=== PATIENT | male | born 1960 | race Asian ===

== ENCOUNTER 2020-07-21 06:34 | Observation (INO) ==
--- NOTE | 2020-07-14 13:23 | PAT Medication Instructions ---
Medication Instructions Date of Service July 14, 2020 Home Medications Medication Instructions Recorded hydrocortisone 2.5 % topical cream 1 applic TOPICAL BID #30 g 11/27/19 ketoconazole 2 % topical cream 1 applic TOPICAL BID #60 g 11/27/19 Wheeled Walker #1 ea 03/23/20 hydrocortisone 2.5 % topical cream 1 applic TOPICAL BID ketoconazole 2 % topical cream 1 applic TOPICAL BID ascorbic acid (vitamin C) [Vitamin C] 1 g PO QAM atorvastatin 20 mg PO HS multivitamin 1 tab PO QAM STOP taking 24 hours before surgery hydrocortisone 2.5 % topical cream 1 applic TOPICAL BID ketoconazole 2 % topical cream 1 applic TOPICAL BID DO NOT take the morning of surgery ascorbic acid (vitamin C) [Vitamin C] 1 g PO QAM multivitamin 1 tab PO QAM Take evening before surgery atorvastatin 20 mg PO HS Other Notes If you have any questions please call us at [phone] or [phone] or [phone] or [phone]
--- NOTE | 2020-07-15 08:21 | Anesthesiology Consultation ---
Date of Service July 15, 2020 Assessment & Plan (1) Encounter for pre-operative examination: Chart Review Chart Review: Acceptable Risk for Surgery (pending preop Covid testing results ) and Patient seen in Pre Admission Testing Per PAT appt on 07/15/20, patient returned from [place]- returned 06/21/20 (did fly). No known Covid positive contacts or Covid related symptoms. No known Covid infection in the past 90 days. Preop Covid testing scheduled 07/17/20= will await results. Educated on importance of self quarantining, social distancing and wearing mask in public both for the patient and household contacts. Pt fully vaccinated Teaching & Discussion Pre-Anesthesia Teaching/Discussion Notes: Instructed NPO after midnight before surgery,except medications with 15 cc of water. Medication instructions provided according to the [facility] guidelines. History Surgery Operation Date: 07/21/20 12:30 Proposed Procedures p Right Total Knee Arthroplasty - Jaime Bach MD Height/Weight Height: 6 ft 2 in Weight: 120.2 kg Allergies Allergy/AdvReac Type Severity Reaction Status Date / Time No Known Drug Allergies Allergy Verified 07/10/20 13:15 Medications Home Medications Medication Instructions Recorded Confirmed Last Taken hydrocortisone 2.5 % topical cream 1 applic TOPICAL BID #30 g 11/27/19 07/14/20 Unknown ketoconazole 2 % topical cream 1 applic TOPICAL BID #60 g 11/27/19 07/14/20 Unknown Wheeled Walker #1 ea 03/23/20 07/10/20 Unknown ascorbic acid (vitamin C) [Vitamin 1 g PO QAM 07/14/20 07/14/20 Unknown C] atorvastatin 20 mg PO HS 07/14/20 07/14/20 Unknown multivitamin 1 tab PO QAM 07/14/20 07/14/20 Unknown Past Medical History Medical History Environmental allergies High cholesterol History of kidney stones No current issues Osteoarthritis Sleep apnea CPAP Exercise / Class Metabolic Activity II 4-5 Yardwork/Stairs/Walk up hill (one flight of stairs - no chest pain or SOB) Past Family History Family History Other No family history of adverse response to anesthesia Past Surgical History Surgical History H/O arthroscopy of right knee H/O rotator cuff surgery RT/LEFT History of anesthesia reaction SLOW TO WAKE UP History of arthroscopy LEFT KNEE History of colonoscopy History of tonsillectomy Ethel teeth removed Past Anesthesia History No Hx of Anesthesia Complications (with exception to slow to wake - just groggy- no reintubation or ICU stay ) and No Family Hx of Anesthesia Complications History of PONV No Hx of PONV and No Hx of Motion Sickness Social History Smoking Status: Never smoker Hx Alcohol Use: Yes Alcohol type: beer, wine and hard liquor alcohol intake frequency: a few times a month Hx Substance Use: No substance use type: does not use Review of Systems Patient denies chest pain, shortness of breath, dyspnea on exertion, reflux, cough, wheezing, palpitations. No hx of seizures, stroke, HI. No hx of blood clots or blood transfusions Physical Exam Vital Signs VITALS BP 147/89 P 64 TEMP 98.3 SP02 98% RESP 16 Constitutional no acute distress ENMT Mouth: no TMJ clicking Thyromental Distance: > or= 3.5 Finger Breadths (4.0) Mallampati Class: II Crowns to molars Neck + thick neck; neck extension not limited Respiratory normal respiratory effort; no respiratory distress Auscultation: lungs clear to auscultation bilaterally; no wheezes Cardiovascular Rate/Rhythm: regular rate and regular rhythm Heart Sounds: no murmur Vessels: no carotid bruit Musculoskeletal Spine: no pain with cervical ROM Extremities: extremities normal to inspection Psychiatric Orientation: alert Lab Results Anesthesia Preop Results Results Anesthesia Widget: WBC 8.55 K/uL (4.8-10.8) 07/15/20 Hgb 14.9 g/dL (14.0-18.0) 07/15/20 Hct 44.3 % (42-52) 07/15/20 Plt 236 K/uL (130-400) 07/15/20 Na 141 mmol/L (136-145) 07/15/20 K 4.1 mmol/L (3.5-5.1) 07/15/20 Cl 111 mmol/L (98-107) H 07/15/20 CO2 25 mmol/L (21-32) 07/15/20 BUN 13 mg/dl (7-18) 07/15/20 Creat 0.87 mg/dl (0.6-1.4) 07/15/20 Glucose Level 102 mg/dl (70-99) H 07/15/20 PT 9.6 Seconds (9.0-12.0) 07/15/20 PTT 25.4 Seconds (21.0-31.0) 07/15/20 INR 0.9 (0.9-1.1) 07/15/20 Blood Type AB Positive 07/15/20 Antibody Screen NEGATIVE 07/15/20 Testing Electrocardiogram Date: 07/15/20 Findings: + NSR @ (64bpm) Normal EKG per cardio. Chest X-Ray Date: 07/15/20 Findings: + NAD The cardiac and mediastinal contours are normal. There is no evidence of focal pulmonary consolidation. There is no evidence of failure. No pleural effusions are visualized.[Rounded opacities at both lung bases are felt to represent nipple shadows. Degenerative changes are present within the dorsal spine.
[~2020-07-21 06:34] MED LIST: ACETAMINOPHEN 500 MG TAB PO SCH; FAMOTIDINE 20 MG TAB PO SCH; GABAPENTIN 600 MG DOSE PO SCH; LR 500ML BOLUS, THEN 15ML/HR IV SCH; METOCLOPRAMIDE HCL 10 MG TABLET PO SCH; ROPIVACAINE 0.5% HCL/PF 150 MG, BUPIVACAINE 0.75% MPF 20 ML, EPINEPHrine 30MG/30ML (OR ... INSTIL SCH; Scopolamine 1 MG TDSY TD SCH; TRANEXAMIC ACID 1,000 MG **IV Intra-op IV SCH; ceFAZolin 2000MG 2,000 MG/15 ML SYR IV SCH
[2020-07-21] MEDS ORDERED: ROPIVACAINE 0.5% 5 MG/ML 30 ML VIAL ONE (06:36)
[2020-07-21] MEDS ORDERED: BUPIVACAINE 0.5 % 5 MG/1 ML PF 10ML VIAL ONE (06:36)
--- NOTE | 2020-07-21 06:54 | History & Physical Bridge Note ---
Date of Service July 21, 2020 History & Physical Bridge Note I have examined the patient, reviewed the History & Physical and in the interval since the performance of the History & Physical I have noted the following changes of clinical significance: no changes noted
[2020-07-21] MEDS ORDERED: TRANEXAMIC ACID / 0.7% NACL 1000MG/100ML BAG IV ONE (07:18)
[2020-07-21] MEDS ORDERED: SCOPOLAMINE 1 MG TDSY TD ONE (07:19)
[2020-07-21] MEDS ORDERED: METOCLOPRAMIDE HCL 10 MG TABLET ONE (07:19)
[2020-07-21] MEDS ORDERED: FAMOTIDINE 20 MG TAB ONE (07:19)
[2020-07-21] MEDS ORDERED: GABAPENTIN 300 MG CAP ONE (07:19)
[2020-07-21] MEDS ORDERED: ACETAMINOPHEN 500 MG TAB ONE (07:19)
[2020-07-21] MEDS ORDERED: fentaNYL citrate 100 MCG/2 ML VIAL ONE (07:25)
[2020-07-21] MEDS ORDERED: MIDAZOLAM HCL 1 MG/ML 2ML VIAL ONE (07:25)
[2020-07-21] MEDS ORDERED: LIDOCAINE 2% 2 ML VIAL/AMP(20MG/ML) INFIL ONE ×2 (07:26)
[2020-07-21] MEDS ORDERED: ONDANSETRON INJ 2 MG/ML 2 ML VIAL ONE (07:27)
[2020-07-21] MEDS ORDERED: PROPOFOL IV EMULSION 10 MG/ML 20 ML VIAL IV ONE ×2 (07:27→10:26)
[2020-07-21] MEDS ORDERED: HYDROmorphone INJ 1 MG/ML SYRINGE IV PRN (08:19)
[2020-07-21] MEDS ORDERED: ONDANSETRON INJ 2 MG/ML 2 ML VIAL IV PRN ×2 (08:19→12:18)
[2020-07-21] MEDS ORDERED: ePHEDrine sulfate 50 MG/ML AMP IV PRN (08:19)
[2020-07-21] MEDS ORDERED: KETOROLAC 30 MG/ML VIAL IV PRN (08:19)
[2020-07-21] MEDS ORDERED: ATROPINE SULFATE 0.1 MG/ML 10ML SYR IV PRN (08:19)
[2020-07-21] MEDS ORDERED: SODIUM CHLORIDE 0.9% PF 50 ML VIAL ONE (08:33)
[2020-07-21] MEDS ORDERED: BUPIVACAINE LIPOSOME 1.3% 266 MG/20 ML VIAL ONE (08:34)
[2020-07-21] MEDS ORDERED: EPINEPHrine INJ 1 MG/ML AMP ONE (08:34)
[2020-07-21] MEDS ORDERED: VANCOMYCIN HCL 1000MG/20ML VIAL ONE (08:34)
[2020-07-21] MEDS ORDERED: BUPIVACAINE 0.25% 30 ML VIAL ONE (08:34)
[2020-07-21] MEDS: ceFAZolin 2,000 MG/15 ML IV PUSH IV ONE ×2 (09:02→09:06)
--- NOTE | 2020-07-21 11:13 | Operative Report ---
Post Operative Report Pre & Post Diagnosis Operation Date: 07/21/20 08:50 Pre-Op Diagnosis: Right Knee Osteoarthritis Post-Op Diagnosis: Right Knee Osteoarthritis I identified the patient and participated in the time-out.: Yes Procedure Operation Date: 07/21/20 08:50 Actual Procedures p Right Total Knee Arthroplasty(Right) - Jaime Bach MD Surgeon Jaime Bach MD Cloth Drier GABRIELLE Mckeon Estimated Blood Loss 50 Findings Consistent with Post-Op Diagnosis Operative findings were extensive grade 4 [id number] disease. He had osteophytes in all 3 compartments. He had a significant joint effusion. He had a chronic ACL deficiency. Fluids 900 cc Specimens Right knee sent for pathology. Drains None. Anesthesia Type Spinal Complications none Disposition Accompanied Patient To Recovery: No Disposition: Recovery Room Indications Patient is 59-year-old gentleman with a long history of right knee problems. He injured his ACL back in the 80s. Never had any surgery on it. Since then he has had 3 knee scopes. Over the years he developed increased pain discomfort stiffness in his knee. Failed all conservative measures. X-rays reveal advanced right knee tricompartment DJD. Elected proceed with surgical treatment. Description of Procedure Operative implants consist of: 1. Biomet Vanguard size 67.5 right posterior stabilized femoral component. 2. Biomet size 79 tibial tray. 3. 10 mm posterior stabilized polyethylene insert. 4. 34 x 8 and half all polypatella. The patient was taken to the operating room, identified, placed on the operating table supine position but all contractors were properly padded. IV antibiotics tried by anesthesia team. Spinal anesthetic and abductor canal block had been provided in the holding area. Thayer catheter was placed in sterile fashion. Right thigh turn was then placed in the right lower extremities and prepped and draped in usual sterile fashion. The right leg was elevated exsanguinated with use of an Esmarch and tourniquet placed at 300 mmHg. An anterior approach to the right knee was then performed to longitudinal incision centered over the patella. Sharp dissection was got through subcutaneous tissue down the extensor mechanism. A medial parapatellar arthrotomy incision was made. Some subperiosteal dissection was carried out medially. The fat pad was resected from each patella tendon. The lateral patellofemoral ligament was released. Patella was subluxated laterally and the knee was flexed. The osteophytes were taken off distal femur. The ACL was absent. The PCL wound was then released from the distal femur and the tibia subluxated anteriorly. The external tibial alignment jig was then placed in the interface the tibia and adjusted 12 mm medially. Proximal tibial cut was made remove about 3 to 4 mm of bone from the medial side. The tibia was sized to a size 79. There were multiple loose bodies in the back of the knee which were removed. Attention drawn the femur. The distal femur during the sharp drop with intramedullary canal was suction. A right 5 degree valgus cutting guide was placed. Distal femoral cutting block was pinned into place. Distal femoral cut was then made to take an additional 5 mm of bone off distal femur. The femur was then sized to a size 67.5. The AP cutting block was pinned parallel to the epicondylar axis which was 4 degrees of external rotation. The anterior cut, anterior chamfer, posterior cut, posterior chamfer cuts were made. The box cutting guide was placed in just slight lateral box cut was made. The knee was flexed. The remnants of the medial and lateral menisci were excised. The osteophytes were taken off the posterior aspect of femur. Multiple additional loose bodies were removed and removed from the back of the knee. Trial femoral component was placed. The tibial tray was then pinned in maximum external rotation and the drill and stem punch used to create defect in proximal tibia for the tibial tray. The knee was then trialed and the 10 mm insert fit most probably. Attention drawn the patella. The patella was cleaned of all soft tissues. The osteophytes were removed from the patella. The patella thickness measured 25 mm in thickness was cut down to 15. It was sized to a size 34 patella. The lateral osteophyte was removed. Patella button was placed. The knee was taken through range of motion patella tracked nicely with no thumbs test. Attention drawn to place the permanent components. Nupathe all trial components were removed. Bone plug was placed in the distal femur limit blood loss. A double batch Palacos G cement was mixed. I did add an additional gram of vancomycin due to his history of multiple surgeries on this knee. A a Biomet Vanguard size 67.5 right posterior stabilized femoral component, size 79 tibial tray, 10 mm posterior stabilized polyethylene insert, and a 34 x 8 and half all polypatella were then cemented in place. The knee was brought out into full extension total cement hardened. Final cement check was then performed. Pericapsular tissues were injected with total 100 cc of combination of 20 cc of Exparel, 30 cc normal saline, 50 cc of quarter percent Marcaine with epinephrine. Patient did receive 1 g tranexamic acid. The tourniquet was then let down for turn time 70 minutes. Hemostasis assured use electrocautery. Extensor mechanism closed with combination 1 PDS suture #1 Vicryl suture in [id number] fashion. Extensor mechanism checked found to be intact with subcutaneous tissue then closed with 2 Dexon suture in a buried knot fashion skin was closed skin jane. Leg was then cleaned and dried a sterile dressing was Xeroform, 4 x 4's, sterile cast padding, Ehsan bandage were applied. Patient then transferred to the recovery room in stable condition. Patient tolerated the procedure well and there were no complications. Som Mckeon, my physician health education assistant, was present for the entire procedure. His assistance was essential and required for appropriate patient positioning, prepping and draping, surgical exposure, performing the technical details of the operation, placement the implants, closure of the wound, and placement of the sterile bandage. I attest to the content of the Intraoperative Record and any orders documented therein. Any exceptions are noted below.
--- NOTE | 2020-07-21 11:40 | XRay Report ---
XR knee RT 1 or 2V routine HISTORY: 59 years-old Male Surgical Post Op right knee total joint arthroplasty COMPARISON: Knee radiographs 12/05/2019 TECHNIQUE: 2 views the right knee FINDINGS: Right knee total joint arthroplasty and patella resurfacing. Anterior midline skin jane are noted along with expected postoperative soft tissue swelling and deep tissue air. Heterotopic ossifications of the posterior fibular head. No acute fracture, alignment or unexpected opaque foreign body. IMPRESSION: Right knee total joint arthroplasty with expected postoperative changes. ACT 112: Negative or not required by law. The above report was generated using voice recognition software. It may contain grammatical, syntax o r spelling errors. Electronically signed by: Manuel Mccurdy M.D. 07/21/2020 11:39 AM
[2020-07-21] MEDS ORDERED: METOCLOPRAMIDE HCL INJ 5 MG/ML 2 ML VIAL IV PRN (12:18)
[2020-07-21] MEDS ORDERED: NALOXONE HCL 0.4 MG/1 ML VIAL/CARP IV PRN (12:18)
[2020-07-21] MEDS ORDERED: TAMSULOSIN HCL 0.4 MG CAP PO PRN (12:18)
[2020-07-21] MEDS ORDERED: bisacodyL 10 MG SUPP PR PRN (12:18)
[2020-07-21] MEDS ORDERED: diphenhydrAMINE Capsule 25 MG CAP PO PRN (12:18)
[2020-07-21] MEDS ORDERED: ALUMINUM/MAGNESIUM SUSP 30 ML UDC PO PRN (12:18)
[2020-07-21] MEDS ORDERED: oxyCODONE HCL IR 5 MG TAB (IMMEDIATE RELEASE) PO PRN (12:18)
[2020-07-21] MEDS ORDERED: HYDROmorphone INJ 0.5 MG/0.5 ML SYR IV PRN (12:18)
[2020-07-21] MEDS ORDERED: MAGNESIUM HYDROXIDE SUSP 30 ML UDC PO PRN (12:18)
[2020-07-21] MEDS: MISSING PHYSICIAN SIGNATURE ON ORDER SCH ×2 (12:38→12:39)
[2020-07-21] MEDS: SODIUM CHLORIDE 0.9% 1000ML 1,000 ML IV SCH ×2 (12:38→19:23)
--- NOTE | 2020-07-21 13:20 | Anesthesiology Progress Note ---
Date of Service July 21, 2020 Anesthesia Post Procedure Vital Signs Vital Signs: Temp Pulse Pulse Resp BP BP Pulse Ox 07/21/20 11:50 36.5 C 54 L 15 119/78 96 07/21/20 11:40 72 15 141/84 H 94 07/21/20 11:30 62 16 123/78 93 07/21/20 11:20 59 L 17 141/84 H 95 07/21/20 11:10 75 17 134/75 100 07/21/20 11:06 36.5 C 84 14 124/75 100 07/21/20 07:10 37.1 C 66 20 170/108 H 97 Transfer of Care Handoff Completed per policy Notes Mental Status: alert / awake / arousable Patient Amnestic to Procedure: Yes Nausea / Vomiting: adequately controlled Pain: adequately controlled Airway Patency, RR, SpO2: stable & adequate BP & HR: stable & adequate Hydration State: stable & adequate Neuraxial Anesthesia: was administered and sensory block is resolving Anesthetic Complications: no major complications apparent
[2020-07-21] MEDS: KETOROLAC 30 MG/ML VIAL IV SCH ×2 (13:44→20:50)
[2020-07-21] MEDS: ACETAMINOPHEN 500 MG TAB PO SCH ×2 (13:44→21:00)
[2020-07-21] MEDS: Scopolamine CHECK PATCH PLACEMENT SCH (15:24)
[2020-07-21] MEDS ORDERED: TRANEXAMIC ACID / 0.7% NACL 1,000 MG/100 ML BAG IV SCH (17:02)
[2020-07-21] MEDS: ASCORBIC ACID 500 MG TAB PO SCH (17:11)
[2020-07-21] MEDS: ceFAZolin 2000MG 2,000 MG/15 ML SYR IV SCH (17:15)
[2020-07-21] MEDS: ASPIRIN 81 MG ECTAB PO SCH (20:48)
[2020-07-21] MEDS: DOCUSATE SODIUM 100 MG CAP PO SCH (20:48)
[2020-07-21] MEDS: TAPENTADOL HCL ER 50 MG TABCR PO SCH (20:57)
[2020-07-21] MEDS ORDERED: ATORVASTATIN 20 MG TAB PO SCH (21:00)
[2020-07-21] MEDS ORDERED: SENNA 8.6 MG TAB PO SCH (21:00)
[2020-07-22] MEDS: Scopolamine CHECK PATCH PLACEMENT SCH ×3 (00:43→16:00)
[2020-07-22] MEDS: SODIUM CHLORIDE 0.9% 1000ML 1,000 ML IV SCH (01:59)
[2020-07-22] MEDS: ceFAZolin 2000MG 2,000 MG/15 ML SYR IV SCH (02:26)
[2020-07-22] MEDS: KETOROLAC 30 MG/ML VIAL IV SCH ×3 (02:26→14:08)
[2020-07-22] MEDS: ACETAMINOPHEN 500 MG TAB PO SCH ×2 (05:42→14:13)
[2020-07-22] MEDS: ASCORBIC ACID 500 MG TAB PO SCH (07:24)
[2020-07-22] MEDS: DOCUSATE SODIUM 100 MG CAP PO SCH (07:24)
[2020-07-22] MEDS: ASPIRIN 81 MG ECTAB PO SCH (07:24)
[2020-07-22] MEDS: TAPENTADOL HCL ER 50 MG TABCR PO SCH (07:28)
[2020-07-22] MEDS ORDERED: dexAMETHasone 10 MG in SYRINGE 0 ML IV SCH (08:00)
[2020-07-22 08:47] LABS: Hematocrit (blood only) 37.1 % (42-52); Hemoglobin 12.2 g/dL (14.0-18.0); Mean Corpuscular Hemoglobin 29.4 pg (25-34); Mean Corpuscular Hgb Conc 32.9 g/dL (32-36); Mean Corpuscular Volume 89.4 fL (80-100); Mean Platelet Volume 9.8 fL (7.4-10.4); Platelet Count 200 K/uL (130-400); RDW Coefficient of Variation 12.6 % (11.5-14.5); RDW Standard Deviation 40.5 fL (36.4-46.3); Red Blood Count 4.15 M/uL (4.7-6.1)
[2020-07-22] MEDS ORDERED: NON-FORMULARY MEDICATION (Ascorbic Acid (Vitamin C) [Vitamin C] 1,000 mg Tablet) PO SCH (09:00)
[2020-07-22] MEDS ORDERED: MULTIVITAMIN TAB PO SCH ×2 (09:00)
[2020-07-22 09:25] LABS: BUN Creatinine Ratio 16.1 (10-20); Calcium 8.4 mg/dl (8.5-10.1); Creatinine Clr Calc Pharmacy 121.5 ml/min; Est GFR (Non-African American) 93.2 ml/min; Potassium 4.1 mmol/L (3.5-5.1)
--- NOTE | 2020-07-22 11:41 | Progress Notes ---
DATE: 07/22/2020 SUBJECTIVE: A 59-year-old gentleman postop day 1 from right knee replacement. He is doing pretty well. Pain has been controlled. No chest pain or shortness of breath. Not feeling dizzy or lightheaded. OBJECTIVE: VITAL SIGNS: Temperature is 36.8. Vital signs stable. GENERAL: Shows a pleasant, middle-aged male. He is sitting up in bed, looks comfortable. LUNGS: Clear to auscultation. HEART: Regular rate and rhythm. ABDOMEN: Soft, nontender, nondistended. EXTREMITIES: Grossly neurovascularly intact except as follows. Examination of the right leg reveals the dressing to be in place. He can dorsiflex and plantarflex his foot appropriately. He has got brisk refill. He can do a straight leg raise. LABORATORY DATA: Hemoglobin 12.2. Hematocrit 37.1. Electrolytes are stable. ASSESSMENT: A 59-year-old gentleman postop day 1 from a right knee replacement, doing pretty well. Pain is controlled. He is neurologically intact. PLAN: 1. DVT prophylaxis including thigh-high TEDs, SCDs, and aspirin twice a day. 2. PT/OT. Weight bear as tolerated. Right total knee protocol. 3. Pain control, doing well with current pain regimen. 4. Disposition: Plan to discharge to home with some home health once adequately recovered. We will see how therapy goes today and his pain is controlled.
== END 2020-07-22 17:02 | disposition home health service (06) ==
LOC: ASU 06:34 → 3E 06:34